=== PATIENT | female | born 1975 | race Asian ===

== ENCOUNTER 2020-12-26 22:53 | Observation (INO) | payer OTHER ==
[~2020-12-26] VITALS: Ht 172.7 cm; Wt 65.5 kg
[2020-12-26 23:57] VITALS: BP 98/59; PULSE 66; TEMP 98.6
[2020-12-27] VITALS (12 sets, daily range): BP systolic 91–107; BP diastolic 53–62; PULSE 63–769; TEMP 97.8–98.7
[2020-12-27] MEDS ORDERED: ALLEGRA 180MG180 MG PO (00:35)
[2020-12-27] MEDS ORDERED: LAMICTAL 25MG T25 MG PO (00:36)
[2020-12-27] MEDS ORDERED: RECTICARE5% RC (00:38)
[2020-12-27] MEDS ORDERED: ROXICODONE 55 MG/TAB PO (00:39)
[2020-12-27] MEDS ORDERED: MINIPRESS2 MG PO (00:41)
[2020-12-27] MEDS ORDERED: PROTOPIC0.1% TP (00:42)
[2020-12-27] MEDS ORDERED: DESYREL 50MG50 MG PO (00:43)
[2020-12-27] MEDS ORDERED: TRIAMCINOLONE A15 G3 TP (00:45)
--- NOTE | 2020-12-27 08:00 | NUR ---
Patient went down for surgery. Consent signed and on the chart. Patient stated she notified her .
--- NOTE | 2020-12-27 09:30 | NUR ---
Patient got back from surgery at 0918. She drowsy but oriented. She wakes up easily but does not stay awake long enough to answer questions or talk. She denies pain and nausea. No other changes at this time. Call light within reach.
--- NOTE | 2020-12-27 15:43 | NUR ---
SW met with patient to complete intake. Patient states that she lives with her Khadar [phone] in [facility]. Patient states that she does not utilize a walker and is independent with ADL's. Patient provides that her PCP is Dr. Margaux Wilson, obtains medications through [facility], and is able to afford her medications. Patient she does not have a DPOA-HC. Patient provides that her DC plan is to return home upon discharge and has no concerns with doing so. SW will continue to follow. DC plan: Home with spouse
--- NOTE | 2020-12-27 18:00 | NUR ---
Patient has been doing well this afternoon. She had some pain, tylenol given for pain. She was slow to eat so it took a bit to give her the pills. She has been independent in the room. Her stopped by to see her. Patient is hoping to discharge tomorrow. She denies pain at this time. Call light within reach. No other changes at this time.
--- NOTE | 2020-12-27 20:05 | NUR ---
Pt. sitting up in bed at this time. Pt. is A&OX3, assessment complete. INT to rt. ac patent. Pt. reports pain to abd. at a 8 on pain scale, giving pain meds per orders. Abd. incisions x3, well approximated. Pt. denies further needs, call light within reach.
[2020-12-28 00:31] VITALS: BP 90/53; PULSE 66; TEMP 97.9
[2020-12-28 04:11] VITALS: BP 84/46; PULSE 71; TEMP 98.1
[2020-12-28 07:53] VITALS: BP 92/59; PULSE 75; TEMP 98.3
--- NOTE | 2020-12-28 07:54 | NUR ---
Patient alert and oriented, answers questions appropriately. See assessment. Abdomen soft, tender, non distended. Bowel sounds active x4 quads. +Flatus. Lap sites to abdomen with edges well approximated, no redness or drainage noted. Band aids replaced per patient request. Post op exercises reviewed with patient. No c/o at this time.
--- NOTE | 2020-12-28 11:01 | NUR ---
Discharge instructions reviewed with patient and spouse, verbalized understanding. Discharged via wheelchair to auto/home with spouse at 1030.
== END 2020-12-28 10:30 | disposition home or self-care (01) ==
LOC: MEDICAL 22:53 → SURG 23:38
PROVIDERS: ADMIT Surgery
DX: K80.00 Calculus of gallbladder with acute cholecystitis without obstruction (principal); F41.0 Panic disorder [episodic paroxysmal anxiety]; F32.A Depression, unspecified; Z79.899 Other long term (current) drug therapy
CPT/HCPCS: G0378; J0295; J0690; J1100; J1885; J2250; J2270; J2405; J2704; J3010; J7120; Q9967

== ENCOUNTER 2021-08-18 08:23 | Emergency (ER) | payer OTHER ==
[~2021-08-18] VITALS: Ht 172.7 cm; Wt 65.5 kg
[~2021-08-18 08:23] MED LIST: ALLEGRA 180MG180 MG PO; DESYREL 50MG50 MG PO; LAMICTAL 25MG T25 MG PO; MINIPRESS2 MG PO; PROTOPIC0.1% TP; RECTICARE5% RC; ROXICODONE 55 MG/TAB PO; TRIAMCINOLONE A15 G3 TP
[2021-08-18 08:36] VITALS: TEMP 98.5
[2021-08-18 08:49] LABS: BASO % 0.5 % (0.0-2.0); EOS # 0.1 K/mm3 (0.0-0.7); EOS % 1.8 % (0.0-4.0); GRAN # 2.6 K/mm3 (1.4-6.5); HEMATOCRIT 39.6 % (37.0-47.0); HEMOGLOBIN 13.1 g/dl (12.5-16.0); LYMPH # 1.3 K/mm3 (1.2-3.4); LYMPH % 30.2 % (20.0-51.0); MEAN CELL VOLUME 94 fl (80.0-100.0); MEAN CORPUSCULAR HEMOGLOBIN 31 pg (27-31); MEAN CORPUSCULAR HGB CONC 33 g/dl (33.0-37.0); MEAN PLATELET VOLUME 8.9 fl (7.4-10.4); MONO # 0.3 K/mm3 (0.1-0.6); MONO % 7.3 % (1.7-9.3); PLATELET COUNT 210 K/mm3 (130-400); RED BLOOD COUNT 4.22 M/mm3 (4.10-5.30); REDCELL DISTRIBUTION WIDTH-CV 13.2 % (11.5-14.5)
[2021-08-18 09:04] LABS: ALBUMIN 4.1 gm/dL (3.5-5.0); CALCIUM 9.2 mg/dL (8.4-10.2); CREATININE, serum 0.79 mg/dL (0.57-1.11); POTASSIUM 4.1 mmol/L (3.5-4.5); TOTAL PROTEIN 6.7 gm/dL (6.2-8.1)
[2021-08-18] MEDS ORDERED: ZOFRAN ODT4 MG PO (10:17)
[2021-08-18 10:24] VITALS: BP 92/66; PULSE 83
== END 2021-08-18 10:24 | disposition home or self-care (01) ==
LOC: COL.ER 08:23
PROVIDERS: Emergency Medicine
DX: R51.9 Headache, unspecified (principal); R11.0 Nausea; Z32.02 Encounter for pregnancy test, result negative

== ENCOUNTER → 2021-12-01 | Outpatient (CLI) | payer OTHER ==
[~2021-12-01] MED LIST changes: +ZOFRAN ODT4 MG PO
== END ==
LOC: COL.RAD 14:00
DX: Z31.41 Encounter for fertility testing (principal)
CPT/HCPCS: Q9967